=== PATIENT | female | born 2000 | race Caucasian/White ===

== ENCOUNTER → 2024-07-11 | Outpatient (CLI) | payer OTHER ==
--- NOTE | 2024-07-11 18:13 | US ---
EXAMINATION TYPE: US renals and bladder DATE OF EXAM: 07/11/2024 COMPARISON: NONE CLINICAL INDICATION: Female, 23 years old with history of R80.9 PROTEINURIA, UNSPECIFIED; protein in the urine. TECHNIQUE: Grayscale imaging of the bilateral kidneys and urinary bladder: FINDINGS: EXAM MEASUREMENTS: Right Kidney: 11.2 x 5.2 x 4.1 cm Left Kidney: 11.0 x 4.4 x 5.7 cm Post void residual: 3.6 ml Right Kidney: No hydronephrosis or masses seen Left Kidney: No hydronephrosis or masses seen Bladder: anechoic, distended Bilateral Jets seen Normal Post Void Residual: Yes There is no evidence for hydronephrosis at this point in time. No nephrolithiasis is seen. No pinky s are identified. The urinary bladder is anechoic. IMPRESSION: 1. No evidence for obstructive uropathy or renal calculus. 2. Normal post void residuals. [facility], , 07/11/2024 6:11 PM
== END | disposition home or self-care (01) ==
LOC: RADUSWWP 15:29
PROVIDERS: ATTEND Internal Medicine Nephrology
DX: R80.9 Proteinuria, unspecified (principal)
CPT/HCPCS: 76770

== ENCOUNTER → 2024-07-23 | Outpatient (CLI) | payer OTHER ==
[2024-07-23 13:36] LABS: Basophils # (A) 0.1 k/uL (0-0.2); Basophils % (A) 1 %; Eosinophils # (A) 0.1 k/uL (0-0.7); Eosinophils % (A) 1 %; HCT 43.3 % (34.0-46.0); Lymphocytes # (A) 2.4 k/uL (1.0-4.8); Lymphocytes % (A) 32 %; MCH 29.5 pg (25.0-35.0); MCHC 32.2 g/dL (31.0-37.0); MCV 91.5 fL (80.0-100.0); Mean Platelet Volume 7.9; Monocytes # (A) 0.3 k/uL (0-1.0); Monocytes % (A) 4 %; Neutrophils # (A) 4.6 k/uL (1.3-7.7); Neutrophils % (A) 62 %; Platelet Count 256 k/uL (150-450); RBC 4.74 m/uL (3.80-5.40); RDW 12.9 % (11.5-15.5); WBC 7.5 k/uL (3.8-10.6)
[2024-07-23 13:49] LABS: Partial Thromboplastin Time 23.5 sec (22.0-30.0); Prothrombin Time 10.6 sec (10.0-12.5)
[2024-07-23 13:55] LABS: African American GFR (CKD) >90 (>60 ml/min/1.73 sqM); Anion Gap 6 mmol/L; Blood Urea Nitrogen 22 mg/dL (7-17); Carbon Dioxide 27 mmol/L (22-30); Chloride 105 mmol/L (98-107); Non-African American GFR(CKD) >90 (>60 ml/min/1.73 sqM); Potassium 4.5 mmol/L (3.5-5.1); Sodium 138 mmol/L (137-145)
== END | disposition home or self-care (01) ==
LOC: LABPAT 13:08
PROVIDERS: ATTEND Internal Medicine Nephrology
DX: R80.9 Proteinuria, unspecified (principal)
CPT/HCPCS: 80051; 82565; 84520; 85025; 85610; 85730; 86850; 86900; 86901

== ENCOUNTER 2024-07-25 07:45 | Day surgery (SDC) | payer OTHER ==
[2024-07-25] MEDS ORDERED: HYDROmorphone 0.5 MG/0.5 ML SYRINGE IVP PRN (08:18)
[2024-07-25] MEDS ORDERED: DESMOPRESSIN ACETATE 28 MCG in SODIUM CHLORIDE 0.9% 50 ML IVPB STA (08:20)
[2024-07-25] MEDS: ALPRAZolam 0.5 MG TAB PO STA (09:05)
[2024-07-25] MEDS: DESMOPRESSIN ACETATE 28 MCG in SODIUM CHLORIDE 0.9% 50 ML IVPB ONE (09:25)
[2024-07-25 09:43] VITALS: TEMP 98
--- NOTE | 2024-07-25 12:03 | CT ---
EXAMINATION TYPE: CT biopsy renal LT DATE OF EXAM: 07/25/2024 10:48 AM COMPARISON: None CLINICAL INDICATION:Female, 23 years old with history of R80.9 PROTEINURIA; TECHNIQUE: CT guided percutaneous random left kidney biopsy using coaxial method. One or more CT dose reduction strategies were utilized during this examination. Total CT dose thousand 609 mGycm. Total fluoroscopy time was seconds. FINDINGS: The procedure was explained to the patient including risks of bleeding, bruising, infection, damage t o nearby organs and need for additional therapy including potential surgery. All questions were answ ered and consent was obtained. The previous studies were reviewed. The patient was placed on the CT couch in the supine position. The overlying skin was marked and prepped using sterile method. Timeout was taken per protocol. Follo wing administration of local anesthesia a 17 gauge coaxial needle was introduced on the kidney. The coaxial needle tip was directed into cortex with CT guidance. Multiple 18 gauge coaxial biopsies wer e then obtained. Following the procedure the needle was removed and sterile dressing was applied t o the percutaneous site. Post biopsy imaging demonstrated a small perinephric hematoma with gas. Pat ient was taken for postprocedure observation in stable condition. IMPRESSIONS: Status post percutaneous left kidney renal cortex biopsy as described above. Pathology results fahad jones [facility], , 07/25/2024 12:00 PM
[2024-07-25 13:20] VITALS: RESP 16
[2024-07-25 19:34] VITALS: BP 121/79; PULSE 83
== END 2024-07-25 14:30 | disposition home or self-care (01) ==
LOC: RADPROMAIN 07:45
PROVIDERS: ATTEND Internal Medicine Nephrology
DX: R80.9 Proteinuria, unspecified (principal); R31.9 Hematuria, unspecified; I10 Essential (primary) hypertension; Z87.891 Personal history of nicotine dependence; Z90.49 Acquired absence of other specified parts of digestive tract
CPT/HCPCS: 36415; 50200; 77012; J2597